=== PATIENT | male | born 1985 | race Caucasian/White ===

== ENCOUNTER 2018-07-27 17:26 | Outpatient (REF) | payer BC, SELFPAY ==
[2018-09-04 08:50] LABS: Fungal Culture, Dermal See Comments
== END 2018-07-27 17:46 ==
LOC: LBN 17:26
PROVIDERS: PCP Family Medicine; Visit Provider Family Medicine
DX: L21.9 Seborrheic dermatitis, unspecified (principal)
CPT/HCPCS: 87101; 87102

== ENCOUNTER 2018-08-18 02:22 | Outpatient (CLI) | payer BC, SELFPAY ==
[2018-08-18 14:21] LABS: Anion Gap 11.7 mmol/L (3-11); BUN 16 mg/dL (7-18); CO2 26.3 mmol/L (21.0-32.0); CREATININE 0.98 mg/dL (0.70-1.30); Calcium 9.7 mg/dL (8.5-10.1); Chloride 102 mmol/L (98-107); Cholesterol 266 mg/dL (50-200); Glucose 105 mg/dL (70-100); HDL Cholesterol 55 mg/dL (40-60); LDL CHOLESTEROL 185 mg/dL (<100); Potassium 4.1 mmol/L (3.5-5.1); Sodium 140 mmol/L (136-145); Triglyceride 105 mg/dL (30-150)
[2018-08-18 20:50] LABS: T3,Free 4.8 pg/ml (2.8-5.3)
== END 2018-08-18 02:42 ==
PROVIDERS: PCP Family Medicine; Visit Provider Family Medicine
DX: Z00.00 Encounter for general adult medical examination without abnormal findings (principal); Z13.220 Encounter for screening for lipoid disorders; Z13.228 Encounter for screening for other metabolic disorders; Z13.29 Encounter for screening for other suspected endocrine disorder
CPT/HCPCS: 36415; 80048; 80061; 83721; 84481

== ENCOUNTER 2019-11-08 03:20 | Outpatient (CLI) | payer BC, SELFPAY ==
[2019-11-08 09:00] LABS: Anion Gap 4.8 mmol/L (3-11); BUN 13 mg/dL (7-18); CO2 31.2 mmol/L (21.0-32.0); CREATININE 1.12 mg/dL (0.70-1.30); Calculated LDL 145 mg/dL (<100); Chloride 104 mmol/L (98-107); Cholesterol 224 mg/dL (<200); Glucose 99 mg/dL (74-106); HDL Cholesterol 66 mg/dL (40-60); Potassium 4.3 mmol/L (3.5-5.1); Sodium 140 mmol/L (136-145); Triglyceride 68 mg/dL (<150)
== END 2019-11-08 03:40 ==
PROVIDERS: PCP Family Medicine; Visit Provider Family Medicine
DX: Z00.00 Encounter for general adult medical examination without abnormal findings (principal); E78.5 Hyperlipidemia, unspecified
CPT/HCPCS: 36415; 80048; 80061

== ENCOUNTER 2020-01-04 10:36 | Outpatient (CLI) | payer SELFPAY ==
[2020-01-07 18:14] LABS: SARS-CoV-2 RNA Undetected (Undetected); SARS-CoV-2 Specimen Source Nasopharynx
== END 2020-01-04 10:56 ==
PROVIDERS: PCP Family Medicine; Visit Provider Family Medicine
DX: Z11.59 Encounter for screening for other viral diseases (principal)
CPT/HCPCS: U0003

== ENCOUNTER 2021-02-27 01:13 | Outpatient (CLI) | payer MEDICAID, SELFPAY ==
[2021-02-27 13:08] LABS: ALT 29 U/L (16-63); AST 17 U/L (15-37); Alkaline Phosphatase 54 U/L (46-116); Anion Gap 8.1 mmol/L (3-11); BUN 13 mg/dL (7-18); Bilirubin, Total 1.2 mg/dL (0.2-1.0); CO2 29.9 mmol/L (21.0-32.0); Calcium 9.1 mg/dL (8.5-10.1); Chloride 104 mmol/L (98-107); Glucose 94 mg/dL (74-106); Potassium 4.2 mmol/L (3.5-5.1); Sodium 142 mmol/L (136-145); Total Protein 7.1 g/dL (6.4-8.2)
== END 2021-02-27 01:14 | disposition home or self-care (01) ==
DX: Z00.00 Encounter for general adult medical examination without abnormal findings (principal)
CPT/HCPCS: 36415; 80053

== ENCOUNTER 2022-04-09 01:39 | Outpatient (CLI) | payer BC, SELFPAY ==
[2022-04-09 12:35] LABS: Anion Gap 9.8 mmol/L (3-11); BUN 12 mg/dL (7-18); CO2 28.2 mmol/L (21.0-32.0); Calcium 9.2 mg/dL (8.5-10.1); Calculated LDL 139 mg/dL (<100); Chloride 104 mmol/L (98-107); Cholesterol 209 mg/dL (<200); Estimated GFR 99.41 (mL/min/1.73m2); Glucose 99 mg/dL (74-106); HDL Cholesterol 56 mg/dL (40-60); Potassium 3.9 mmol/L (3.5-5.1); Sodium 142 mmol/L (136-145); Triglyceride 72 mg/dL (<150)
[2022-04-09 12:54] LABS: Hemoglobin A1C 5.7 % (<5.7)
== END 2022-04-09 01:40 | disposition home or self-care (01) ==
LOC: LOS 01:39
PROVIDERS: PCP Nurse Practitioner Family; Visit Provider Nurse Practitioner Family
DX: E78.5 Hyperlipidemia, unspecified (principal)
CPT/HCPCS: 36415; 80048; 80061; 83036

== ENCOUNTER 2023-08-01 17:04 | Outpatient (REF) | payer BC, SELFPAY ==
[2023-08-03 14:30] LABS: Chlamydia Result Negative (Negative); GC Result Negative (Negative)
== END 2023-08-01 17:05 | disposition home or self-care (01) ==
LOC: NCHCN 17:04
PROVIDERS: PCP Nurse Practitioner Family; Visit Provider Nurse Practitioner Family
DX: Z00.00 Encounter for general adult medical examination without abnormal findings (principal)
CPT/HCPCS: 87491; 87591

== ENCOUNTER 2023-08-16 04:17 | Outpatient (CLI) | payer BC, SELFPAY ==
[2023-08-16 13:04] LABS: Anion Gap 7.7 mmol/L (3-11); BUN 9 mg/dL (7-18); CO2 30.3 mmol/L (21.0-32.0); Calcium 9.4 mg/dL (8.5-10.1); Calculated LDL 112 mg/dL (<100); Chloride 104 mmol/L (98-107); Cholesterol 188 mg/dL (<200); Glucose 102 mg/dL (74-106); HDL Cholesterol 68 mg/dL (40-60); Sodium 142 mmol/L (136-145); TSH (W/Ref FT4) 3.38 uIU/mL (0.36-3.74); Triglyceride 42 mg/dL (<150)
[2023-08-16 13:08] LABS: Hemoglobin A1C 5.8 % (<5.7)
[2023-08-16 19:50] LABS: HIV-1/2 Ag & Ab Screen Negative (Negative)
[2023-08-16 19:52] LABS: Hepatitis C Ab w Rflx HCV PCR Negative (Negative)
[2023-08-17 09:37] LABS: Syphilis Serology (RPR) Negative (Negative)
== END 2023-08-16 04:18 | disposition home or self-care (01) ==
LOC: LOS 04:17
PROVIDERS: PCP Nurse Practitioner Family; Visit Provider Nurse Practitioner Family
DX: Z00.00 Encounter for general adult medical examination without abnormal findings (principal); Z13.220 Encounter for screening for lipoid disorders; Z11.59 Encounter for screening for other viral diseases; Z11.4 Encounter for screening for human immunodeficiency virus [HIV]; Z13.29 Encounter for screening for other suspected endocrine disorder; Z13.1 Encounter for screening for diabetes mellitus; Z13.228 Encounter for screening for other metabolic disorders; Z11.3 Encounter for screening for infections with a predominantly sexual mode of transmission
CPT/HCPCS: 36415; 80048; 80061; 86803; 87389; 83036; 84443; 86592

== ENCOUNTER 2024-09-04 02:05 | Outpatient (CLI) | payer BC, SELFPAY ==
[2024-09-04 12:47] LABS: Hemoglobin A1C 5.5 % (<5.7)
[2024-09-04 12:51] LABS: Anion Gap 5.6 mmol/L (3-11); BUN 17 mg/dL (7-18); CO2 31.4 mmol/L (21.0-32.0); CREATININE 1.3 mg/dL (0.70-1.30); Calcium 9.2 mg/dL (8.5-10.1); Calculated LDL 152 mg/dL (<100); Chloride 106 mmol/L (98-107); Cholesterol 231 mg/dL (<200); Estimated GFR 71.67 (mL/min/1.73m2); Glucose 100 mg/dL (74-106); HDL Cholesterol 67 mg/dL (>or=40); Potassium 3.8 mmol/L (3.5-5.1); Sodium 143 mmol/L (136-145); Triglyceride 60 mg/dL (<150)
[2024-09-04 20:45] LABS: HBs Antibody, Quant 43.8 mIU/mL (See Note); Hep B Surface Ab Positive (See Note); Hepatitis B Core Antibody Negative (Negative); Hepatitis B Surface Antigen Negative (Negative)
== END 2024-09-04 02:06 | disposition home or self-care (01) ==
LOC: LOS 02:06
PROVIDERS: PCP Nurse Practitioner Family; Visit Provider Nurse Practitioner Family
DX: E78.5 Hyperlipidemia, unspecified (principal); R73.03 Prediabetes; Z11.59 Encounter for screening for other viral diseases
CPT/HCPCS: 36415; 80048; 80061; 86704; 86706; 87340; 83036